=== PATIENT | female | born 1995 | race Caucasian/White ===

== ENCOUNTER 2016-07-02 21:34 | Emergency (ER) | payer BC ==
[~2016-07-02] VITALS: Ht 165.1 cm; Wt 77.1 kg
[~2016-07-02 21:34] MED LIST: ATIVAN0.5 MG PO
[2016-07-02 21:36] VITALS: BP 120/64
== END 2016-07-03 00:16 | disposition home or self-care (01) ==
LOC: EME 21:34
DX: S50.12XA Contusion of left forearm, initial encounter (principal); S63.502A Unspecified sprain of left wrist, initial encounter; W10.9XXA Fall (on) (from) unspecified stairs and steps, initial encounter
CPT/HCPCS: 73090; 99281; 99284

== ENCOUNTER 2016-07-19 13:02 | Emergency (ER) | payer BC ==
[~2016-07-19] VITALS: Ht 165.1 cm; Wt 74.9 kg
[2016-07-19] MEDS ORDERED: DEPO-PROVER150 MG/ML IM (13:34)
[2016-07-19 15:20] VITALS: BP 130/72
== END 2016-07-19 15:20 | disposition home or self-care (01) ==
LOC: EME 13:02
DX: M79.662 Pain in left lower leg (principal)
CPT/HCPCS: 93971; 99281; 99283

== ENCOUNTER 2016-08-04 19:40 | Emergency (ER) | payer BC ==
[~2016-08-04] VITALS: Ht 165.1 cm; Wt 76.4 kg
[~2016-08-04 19:40] MED LIST changes: +DEPO-PROVER150 MG/ML IM
[2016-08-04 20:49] LABS: HEMATOCRIT 35.8 % (36.0-46.0); MCH 30.4 PG (29.0-34.0); MCHC 34.4 G/DL (30.0-36.0); MCV 88.6 FL (83-99); PLATELET COUNT 147 K/uL (156-360); RBC DIS.WIDTH-CV 12.3 % (11.8-14.6); RBC DIS.WIDTH-SD 39.6 % (39-53); RED BLOOD COUNT 4.04 M/uL (3.80-5.20); WHITE BLOOD COUNT 10.4 K/uL (4.1-10.2)
[2016-08-04 20:57] LABS: CHLORIDE 104 mEq/L (99-109); SODIUM 135 mEq/L (136-147)
[2016-08-04 20:59] LABS: GLUCOSE 93 mg/dL (70-99)
[2016-08-04 21:00] LABS: ANION GAP 7 MEQ/L (2-14)
[2016-08-04 21:01] LABS: TOTAL BILIRUBIN 0.2 mg/dL (0.0-1.0)
[2016-08-04 21:02] LABS: ALKALINE PHOSPHATASE 45 IU/L (3-129)
[2016-08-04 21:03] LABS: GFR ESTIMATE (CALCULATED) > 59 mL/min/
[2016-08-04 21:04] LABS: UREA NITROGEN (BUN) 11 mg/dL (9-23)
[2016-08-04 21:06] LABS: ADD MIUA? YES; BILIRUBIN NEGATIVE; BLOOD NEGATIVE; COLOR YELLOW ((YELLOW)); GLUCOSE (STRIP) NEGATIVE; KETONES NEGATIVE; LEUKOCYTES NEGATIVE; NITRITE NEGATIVE; PROTEIN (STRIP) NEGATIVE; SPECIFIC GRAVITY 1.008 (1.000-1.030); UROBILINOGEN 0.2 MG/DL (0.2-1.0)
[2016-08-04 21:14] LABS: BACTERIA NONE SEEN /HPF; EPITHELIAL CELLS 1+ /HPF; MUCUS TRACE /LPF; RED BLOOD CELLS 0-5 /HPF (0-5); WHITE BLOOD CELLS 0-5 /HPF (0-5)
[2016-08-04] MEDS ORDERED: FLONASE16 G1 BOTH NARES (22:30)
[2016-08-04] MEDS ORDERED: ANTIVERT25 MG PO (22:30)
[2016-08-04 22:52] VITALS: BP 112/68
== END 2016-08-04 22:53 | disposition home or self-care (01) ==
LOC: EME 19:40
PROVIDERS: Physician Assistant
DX: O26.891 Other specified pregnancy related conditions, first trimester (principal); H65.02 Acute serous otitis media, left ear; R42 Dizziness and giddiness; Z3A.12 12 weeks gestation of pregnancy
CPT/HCPCS: 80053; 81003; 85027; 93005; 99281; 99284; J7030